=== PATIENT | male | born 1995 | race Caucasian/White ===

== ENCOUNTER 2018-09-24 13:09 | Inpatient (IN) | payer BC ==
[2018-09-24] VITALS (7 sets, daily range): BP systolic 102–131; BP diastolic 52–75
[~2018-09-24] VITALS: Ht 177.8 cm; Wt 70.3 kg
[2018-09-24 13:35] LABS: BASO % 0 % (0-3); EOS # 0.3 x10^3/uL (0.0-0.7); EOS % 4 % (0-3); HEMATOCRIT 49.5 % (39.0-53.0); HEMOGLOBIN 16.6 g/dL (13.0-17.5); LYMPH # 2.8 x10^3/uL (1.0-4.8); LYMPH % 38 % (24-48); MEAN CORPUSCULAR HEMOGLOBIN 30 pg (25-35); MEAN CORPUSCULAR HGB CONC 33 g/dL (31-37); MEAN CORPUSCULAR VOLUME 89 fL (79-100); MONO # 0.6 x10^3/uL (0.0-1.1); MONO % 8 % (0-9); NEUT # 3.7 x10^3uL (1.8-7.7); NEUT % 51 % (31-73); PLATELET COUNT 247 x10^3/uL (140-400); RED BLOOD COUNT 5.57 x10^6/uL (4.30-5.70); RED CELL DISTRIBUTION WIDTH 13.3 % (11.5-14.5); WHITE BLOOD COUNT 7.3 x10^3/uL (4.0-11.0)
[2018-09-24 13:42] LABS: ACETAMIN < 2.0 mcg/mL (10-30); SALIC 1.5 mg/dL (2.8-20.0)
[2018-09-24 13:44] LABS: ALBUMIN 4.2 g/dL (3.4-5.0); CALCIUM 8.6 mg/dL (8.5-10.1); CREATININE 1.2 mg/dL (0.7-1.3); DIRECT BILIRUBIN 0.1 mg/dL (0.0-0.2); POTASSIUM 3.9 mmol/L (3.5-5.1); TOTAL BILIRUBIN 0.4 mg/dL (0.2-1.0); TOTAL PROTEIN 7.8 g/dL (6.4-8.2)
[2018-09-24 13:47] LABS: BARBITURATES NEG (NEG); BENZODIAZEPINES NEG (NEG); CANNABINOIDS POS (NEG); COCAINE NEG (NEG); METHADONE NEG (NEG); OPIATES NEG (NEG); PHENCYCLIDINE NEG (NEG)
[2018-09-24 13:48] LABS: AMPHETAMINE/METHAMPHETAMINE NEG (NEG)
[2018-09-24 13:49] LABS: BACTERIA,URINE 0 /HPF (0-FEW); BILIRUBIN,URINE NEG (NEG); CLARITY,URINE CLOUDY; COLOR,URINE YELLOW; GLUCOSE,URINE NEG (NEG); NITRITE,URINE NEG (NEG); RBC,URINE 0 /HPF (0-2); UROBILINOGEN,URINE 0.2 mg/dL (0.2 mg/dL); WBC,URINE 0 /HPF (0-4)
[2018-09-24 13:50] LABS: AMORPHOUS SEDIMENT,UR PRESENT /HPF
--- NOTE | 2018-09-24 14:13 | EKG ---
[address] [address] Test Date: 2018-09-24 Test Time: 13:40:26 Pat Name: PAULA LEES Department: Room: Gender: M [employer] Supervisor: : 1995 Requested By: PADMINI CHAKRABORTY Order Number: [id number] Reading MD: Everett Dang Measurements Intervals [place] Rate: 77 P: 34 ID: [id number] QRS: 85 QRSD: 102 T: 38 QT: 344 QTc: 391 Interpretive Statements SINUS RHYTHM Electronically Signed On 09-28-2018 10:53:40 SEXUAL ABUSE COUNSELLOR by Everett Dang
[2018-09-24] MEDS ORDERED: IV NORMAL SALINE 1,000ML 1,000 ML IV ONE (14:30)
--- NOTE | 2018-09-24 15:07 | PHYS DOC ---
Past History Past Medical History: Bipolar Past Surgical History: Tonsillectomy Alcohol Use: None Drug Use: Marijuana Adult General Chief Complaint Chief Complaint: OVERDOSE HPI HPI Patient is a 23-year-old male who presents after taking overdose of his Seroquel. Patient was reportedly diagnosed as bipolar at the age of 6 and patient states that he has been more depressed than usual over the last few months and has been having thoughts of suicide. He states that today he just decided that he was going to do it. Patient states that he took maybe around 15 tablets of his Seroquel but is not exactly certain how many. He does indicate that up until this point he has been taking his medication exactly as prescribed. Patient's nurse counted medication and it appears the total that he took was likely to be 75d653 mg extended release Seroquel. Patient does admit to remorse after having taken the medication. Patient very cooperative on history and physical taking. Review of Systems Review of Systems Constitutional: Denies fever or chills [] Respiratory: Denies cough or shortness of breath [] Cardiovascular: No additional information not addressed in HPI [] GI: Denies abdominal pain, nausea, vomiting or diarrhea [] Neurologic: Denies headache, focal weakness or sensory changes [] Psychiatric: Reports depression with suicide ideation and attempt[] All other systems were reviewed and found to be within normal limits, except as documented in this note. Current Medications Current Medications Current Medications Medications (Trade) Dose Ordered Sig/[facility] Start Time Stop Time Status Last Admin Dose Admin Sodium Chloride 1,000 ml @ 1,000 mls/hr 1X ONCE 09/24/18 14:30 09/24/18 15:29 Allergies Allergies Allergies Coded Allergies Type Severity Reaction Last Updated Verified No Known Drug Allergies 09/24/18 No Physical Exam Physical Exam Constitutional: Well developed, well nourished, no acute distress, non-toxic appearance. [] HENT: Normocephalic, atraumatic, bilateral external ears normal, oropharynx moist, no oral exudates, nose normal. [] Eyes: PERRLA, EOMI, conjunctiva normal, no discharge. [] Neck: Normal range of motion, no tenderness, supple, no stridor. [] Cardiovascular: Regular rate and rhythm[] Lungs & Thorax: Bilateral breath sounds clear to auscultation [] Abdomen: Bowel sounds normal, soft, no tenderness. [] Skin: Warm, dry, no erythema, no rash. [] Extremities: No tenderness, no cyanosis, no clubbing, ROM intact, no edema. [] Neurologic: Alert and oriented X 3, normal motor function, normal sensory function, no focal deficits noted. [] Psychologic: Patient with slightly flattened affect and depressed. Reports suicidal thoughts and intent. [] Current Patient Data Vital Signs Vital Signs Date Time Temp Pulse Resp B/P (MAP) Pulse Ox O2 Delivery O2 Flow Rate FiO2 09/24/18 13:09 98.0 92 18 99 Room Air Lab Results Laboratory Tests Test 09/24/18 13:14 09/24/18 13:25 White Blood Count 7.3 x10^3/uL (4.0-11.0) Red Blood Count 5.57 x10^6/uL (4.30-5.70) Hemoglobin 16.6 g/dL (13.0-17.5) Hematocrit 49.5 % (39.0-53.0) Mean Corpuscular Volume 89 fL (79-100) Mean Corpuscular Hemoglobin 30 pg (25-35) Mean Corpuscular Hemoglobin Concent 33 g/dL (31-37) Red Cell Distribution Width 13.3 % (11.5-14.5) Platelet Count 247 x10^3/uL (140-400) Neutrophils (%) (Auto) 51 % (31-73) Lymphocytes (%) (Auto) 38 % (24-48) Monocytes (%) (Auto) 8 % (0-9) Eosinophils (%) (Auto) 4 % (0-3) H Basophils (%) (Auto) 0 % (0-3) Neutrophils # (Auto) 3.7 x10^3uL (1.8-7.7) Lymphocytes # (Auto) 2.8 x10^3/uL (1.0-4.8) Monocytes # (Auto) 0.6 x10^3/uL (0.0-1.1) Eosinophils # (Auto) 0.3 x10^3/uL (0.0-0.7) Basophils # (Auto) 0.0 x10^3/uL (0.0-0.2) Sodium Level 139 mmol/L (136-145) Potassium Level 3.9 mmol/L (3.5-5.1) Chloride Level 101 mmol/L (98-107) Carbon Dioxide Level 29 mmol/L (21-32) Anion Gap 9 (6-14) Blood Urea Nitrogen 20 mg/dL (8-26) Creatinine 1.2 mg/dL (0.7-1.3) Estimated GFR (Cockcroft-Gault) 75.0 Glucose Level 98 mg/dL (70-99) Calcium Level 8.6 mg/dL (8.5-10.1) Magnesium Level 2.0 mg/dL (1.8-2.4) Total Bilirubin 0.4 mg/dL (0.2-1.0) Direct Bilirubin 0.1 mg/dL (0.0-0.2) Aspartate Amino Transferase (AST) 33 U/L (15-37) Alanine Aminotransferase (ALT) 63 U/L (16-63) Alkaline Phosphatase 73 U/L (46-116) Total Protein 7.8 g/dL (6.4-8.2) Albumin 4.2 g/dL (3.4-5.0) Salicylates Level 1.5 mg/dL (2.8-20.0) L Salicylate Last Dose Date Unk Salicylate Last Dose Time Unk Acetaminophen Level < 2.0 mcg/mL (10-30) L Acetaminophen Last Dose Date Unk Acetaminophen Last Dose Time Unk Ethyl Alcohol Level < 10 mg/dL (0-10) Urine Collection Type Unknown Urine Color Yellow Urine Clarity Cloudy Urine pH 8.0 Urine Specific [place] 1.020 Urine Protein Neg (NEG-TRACE) Urine Glucose (UA) Neg mg/dL (NEG) Urine Ketones (Stick) Neg mg/dL (NEG) Urine Blood Neg (NEG) Urine Nitrite Neg (NEG) Urine Bilirubin Neg (NEG) Urine Urobilinogen Dipstick 0.2 mg/dL (0.2 mg/dL) Urine Leukocyte Esterase Neg (NEG) Urine RBC 0 /HPF (0-2) Urine WBC 0 /HPF (0-4) Urine Squamous Epithelial Cells None /LPF Urine Amorphous Sediment Present /HPF Urine Bacteria 0 /HPF (0-FEW) Urine Opiates Screen Neg (NEG) Urine Methadone Screen Neg (NEG) Urine Barbiturates Neg (NEG) Urine Phencyclidine Screen Neg (NEG) Urine Amphetamine/Methamphetamine Neg (NEG) Urine Benzodiazepines Screen Neg (NEG) Urine Cocaine Screen Neg (NEG) Urine Cannabinoids Screen Pos (NEG) Urine Ethyl Alcohol Neg (NEG) EKG EKG EKG demonstrates normal sinus rhythm with rate of 77.[] Radiology/Procedures Radiology/Procedures [] Course & Med Decision Making Course & Med Decision Making Pertinent Labs and Imaging studies reviewed. (See chart for details) [] Dragon Disclaimer Dragon Disclaimer This electronic medical record was generated, in whole or in part, using a voice recognition dictation system. Departure Departure: Impression: Primary Impression: Overdose Additional Impression: Suicide attempt Disposition: ADMITTED INPATIENT Admitting Physician: Deloris Palacios Condition: GOOD Referrals: NON,STAFF (PCP) Problem Qualifiers Primary Impression: Overdose Encounter type: initial encounter Injury intent: intentional self-harm Qualified Codes: T50.902A - Poisoning by unspecified drugs, medicaments and biological substances, intentional self-harm, initial encounter PADMINI CHAKRABORTY Jr. DO Sep 24, 2018 15:07
[2018-09-24] MEDS ORDERED: ONDANSETRON PF 4 MG/2 ML VIAL. IV PRN (16:45)
[2018-09-24] MEDS ORDERED: MORPHINE SULFATE 2 MG/ML DISP.SYRIN. IV PRN (19:00)
[2018-09-24] MEDS ORDERED: IV NORMAL SALINE 1,000ML 1,000 ML IV SCH (19:00)
[2018-09-24] MEDS ORDERED: QUET300T67 PO (19:22)
[2018-09-24] MEDS ORDERED: GUAN3TAB2 PO (19:22)
[2018-09-24] MEDS ORDERED: BUPR300T4 PO (19:22)
[2018-09-25] VITALS (9 sets, daily range): BP systolic 111–139; BP diastolic 56–72
[2018-09-25 06:42] LABS: BASO % 0 % (0-3); EOS # 0.2 x10^3/uL (0.0-0.7); EOS % 3 % (0-3); HEMATOCRIT 44.7 % (39.0-53.0); HEMOGLOBIN 14.9 g/dL (13.0-17.5); LYMPH # 1.9 x10^3/uL (1.0-4.8); LYMPH % 29 % (24-48); MEAN CORPUSCULAR HEMOGLOBIN 30 pg (25-35); MEAN CORPUSCULAR HGB CONC 33 g/dL (31-37); MEAN CORPUSCULAR VOLUME 90 fL (79-100); MONO # 0.5 x10^3/uL (0.0-1.1); MONO % 7 % (0-9); NEUT # 3.8 x10^3uL (1.8-7.7); NEUT % 60 % (31-73); PLATELET COUNT 190 x10^3/uL (140-400); RED BLOOD COUNT 4.99 x10^6/uL (4.30-5.70); RED CELL DISTRIBUTION WIDTH 13.2 % (11.5-14.5); WHITE BLOOD COUNT 6.4 x10^3/uL (4.0-11.0)
[2018-09-25 06:54] LABS: ALBUMIN 3.5 g/dL (3.4-5.0); ALBUMIN/GLOBULIN RATIO 1.2 (1.0-1.7); CALCIUM 8.4 mg/dL (8.5-10.1); CREATININE 1.1 mg/dL (0.7-1.3); TOTAL BILIRUBIN 0.5 mg/dL (0.2-1.0); TOTAL PROTEIN 6.5 g/dL (6.4-8.2)
--- NOTE | 2018-09-25 11:00 | EKG ---
[address] [address] Test Date: 2018-09-25 Test Time: 10:54:16 Pat Name: PAULA LEES Department: Room: ICU03 1 Gender: M Business Database Analyst: SHARONA : 1995 Requested By: ALVARO VILLARREAL Order Number: [id number] Reading MD: Everett Dang Measurements Intervals [place] Rate: 83 P: 39 OK: 138 QRS: 88 QRSD: 102 T: 34 QT: 342 QTc: 407 Interpretive Statements SINUS RHYTHM Electronically Signed On 09-28-2018 11:05:31 KEY OPERATOR by Everett Dang
--- NOTE | 2018-09-25 11:30 | DS ---
DATE OF DISCHARGE: 09/24/2018 HOSPITAL COURSE: The patient is a 23-year-old male patient, he basically took about 18 tablets of 300 mg extended release Seroquel suicidal attempt and he is known to have bipolar disorder since childhood. He has own psychiatrist at [place]. I spoke with the [facility] and see that as long as been observed for 13 hours with no evidence of any arrhythmias or tachycardia and his QT interval remained within acceptable range and the patient can be discharged, given that they are planning to go back to [place] and he has own psychiatrist there and he is under the care of his father, who took the custody of all his medication. A decision was made to discharge him home to follow with his psychiatrist in [place]. The [facility] Control [facility] recommended that he should start taking Seroquel tomorrow, but he can take start taking her medication today. FINAL DISCHARGE DIAGNOSES: Suicidal attempt, bipolar disorder; marijuana abuse. ALVARO VILLARREAL MD DR: ELLEN/amor JOB#: [id number] / [id number]
--- NOTE | 2018-09-25 11:52 | HP ---
ADMIT DATE: 09/24/2018 HISTORY OF PRESENT ILLNESS: The patient is a 23-year-old male patient, who was visiting from [place] and who presented to the Emergency Room after taking an overdose of Seroquel. He apparently was diagnosed as bipolar at the age of 6 and the patient stated that he has been depressed more than usual over the last few months and has been having thoughts of suicide. He states that on the day of admission, he just decided to go and do it. He stated he took maybe around 15 tablets of his Seroquel, but he was not exactly certain how many. He indicated that up until having taken the medication, he was very cooperative and taking his medication as prescribed. The patient's nurse counted medication and it appears that the total he took was likely to be 18 x 300 extended release Seroquel. The patient does admit to remorse after having taken the medication; however, he was very cooperative with history and physical taking. PAST MEDICAL HISTORY: Significant for diagnosis of bipolar disorder since childhood as well as ADHD. PAST SURGICAL HISTORY: Significant for tonsillectomy when he was a child. He does not smoke, does not drink alcohol, but uses marijuana. He apparently is single. ALLERGIES: He has no known drug allergies. MEDICATIONS: He is currently on following medications: He is on Wellbutrin-XL 300 mg tablet extended release once a day. He is on quetiapine fumarate 300 mg once a day and guanfacine 3 mg p.o. daily extended release for depression. REVIEW OF SYSTEMS: As per history of present illness. PHYSICAL EXAMINATION: GENERAL: On examining him on arrival to the Emergency Room, he looked well and was clearly in no apparent distress. No pallor, jaundice, cyanosis, or thyromegaly. No jugular venous distension. No limb edema. VITAL SIGNS: His heart rate was 92, blood pressure was 123/68, temperature was 98, respiratory rate was 18 and oxygen saturation was 99% on room air. HEAD, EYES, NOSE AND THROAT: Showed normocephalic, atraumatic. NECK: Supple. HEART: Showed normal first and second heart sounds with no gallop, rub or murmur. CHEST: Clear to auscultation. No crepitation or rhonchi. ABDOMEN: Distended, soft, nontender. No guarding or rigidity. No organomegaly. Hernial orifice intact. Bowel sounds normal. NEUROLOGIC: He was awake, alert, responding appropriately. Cranial nerves intact. EXTREMITIES: He moves extremities without difficulty. He ambulates without assistance or assistive devices. LABORATORY DATA: Lab work on admission showed a serum sodium 139, potassium 3.9, chloride 101, bicarbonate 29, anion gap of 9, BUN 20, creatinine 1.2, estimated GFR was 75 mL per minute, his glucose was 98, calcium was 8.6, magnesium 2. Total bilirubin, AST, ALT, alkaline phosphatase were normal. Total protein 7.8, albumin was 4.2. His white cell count was 7300, hemoglobin 16.6, hematocrit 49.5, MCV 89 and platelet count of 147,000. Urinalysis was essentially yellow cloudy with a pH of 8, specific gravity of 1.020. The urine was negative for protein, glucose, ketones, blood, nitrite, leukocyte esterase. There are no rbc's, no wbc's, and no bacteria. His toxic screen was negative for opiates, methadone, amphetamine, methamphetamine was positive for cannabinoids, negative for alcohol. ASSESSMENT AND PLAN: The patient was admitted for observation. According to the recommendation by the Poison Control Center for at least 13 hours and to measure his QT interval when he arrived yesterday and EKG done at around 13:40 p.m. on 09/24/2018 showed that his acute QT interval of 344 and corrected QT interval was 391. This morning, his corrected QT interval was 342 and corrected was 407. I did speak with the Poison Control Center. Basically, the patient was kept overnight in the ICU with one-on-one sitter and continue to be monitored and we will decide how to see on further management tomorrow morning and the patient is from [place] and he has his own psychiatrist there. Given that we will consult our psychiatrist, although unfortunately Dr. Beckford is not in town and I am not sure whether Dr. Beckford will come and see the patient today or next tomorrow. ALVARO VILLARREAL MD DR: ELLEN/amor JOB#: [id number] / [id number]
[2018-09-26] MEDS ORDERED: GUANFACINE HCL 3 MG PO SCH (09:00)
[2018-09-26] MEDS ORDERED: buPROPion XL 300 MG TAB.ER.24H. PO SCH (09:00)
[2018-09-26] MEDS ORDERED: QUETIAPINE FUMARATE 300 MG PO SCH (09:00)
== END 2018-09-25 11:20 | disposition home or self-care (01) | DRG 918 ==
LOC: ER 13:09 → ICU 15:00 → ER 17:25
PROVIDERS: ADMIT Internal Medicine; ATTEND Internal Medicine
DX: T43.591A Poisoning by other antipsychotics and neuroleptics, accidental (unintentional), initial encounter (principal); F31.9 Bipolar disorder, unspecified; F12.10 Cannabis abuse, uncomplicated; Y92.89 Other specified places as the place of occurrence of the external cause; Z79.899 Other long term (current) drug therapy; Z90.49 Acquired absence of other specified parts of digestive tract
CPT/HCPCS: 36415; 80048; 80053; 80076; 80307; 81001; 83735; 85025; 87641; 93005; 96360; G0480; G6039; 82003; 99285-25; J7030